=== PATIENT | female | born 1945 | race Caucasian/White ===

== ENCOUNTER → 2018-01-13 13:26 | Outpatient (CLI) | payer MEDICARE, OTHER, SELFPAY ==
--- NOTE | 2018-01-13 13:29 | RAD_ITS ---
STUDY: X-RAY - RIGHT KNEE REASON FOR EXAM: Pain. TECHNIQUE: 4 view(s) of the knee. COMPARISON: None. FINDINGS: Normal visualized distal femur. Normal visualized proximal tibia and fibula. Normal proximal tibiofibular articulation. There is mild joint space narrowing of the medial femorotibial compartment. Normal lateral femorotibial compartment. There are small marginal osteophytes and moderate to severe joint space narrowing of the medial aspect of the patellofemoral articulation. There is a small enthesophyte at the superior pole of the patella. 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 Electronically Signed: Bubba Younger MD at 11:55 EDT Tel , Service support ,
--- NOTE | 2018-01-13 13:29 | RAD_ITS ---
STUDY: X-RAY - LEFT KNEE REASON FOR EXAM: Pain. TECHNIQUE: 4 view(s) of the knee. COMPARISON: None. FINDINGS: Normal visualized distal femur. Normal visualized proximal tibia and fibula. Normal proximal tibiofibular articulation. There is a small marginal osteophyte of the medial femoral condyle and mild joint space narrowing of the medial femorotibial compartment. Normal lateral femorotibial compartment. There is moderately severe joint space narrowing of the medial aspect of the patellofemoral articulation. There is a small enthesophyte at the superior pole of the patella. 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 Electronically Signed: Bubba Younger MD at 11:54 EDT Tel , Service support ,
== END ==
PROVIDERS: Family Provider Internal Medicine; PCP Internal Medicine; Referring Provider Orthopaedic Surgery; Visit Provider Orthopaedic Surgery
DX: M25.561 Pain in right knee (principal); M25.562 Pain in left knee
CPT/HCPCS: 73564

== ENCOUNTER → 2019-04-07 09:14 | Outpatient (CLI) | payer MEDICARE, OTHER, SELFPAY ==
--- NOTE | 2019-04-07 09:19 | BI_ITS ---
MAMMOGRAPHY - BILATERAL SCREENING REASON FOR EXAM: Female, 73 years old. Routine annual screening examination. PERTINENT HISTORY: Grandmother with breast cancer. Aunt with Breast cancer. Prior stereotactic right breast biopsy. TECHNIQUE: Digital bilateral breast becca (3D mammographic acquisition) in the CC and MLO projections. 2-D mediolateral oblique (MLO) and craniocaudad (CC) views of both breasts were obtained. CAD: Full Field Digital Mammography with Computer Added Detection was performed. COMPARISON: Comparison is made with prior examination dated December 10, 2016 and October 31, 2015. FINDINGS: Breast Composition: The breasts are almost entirely fatty. There are no dominant masses or suspicious calcifications. Scattered microcalcifications are seen in the inferior medial aspect of the right breast. A stereotactic tissue clip marker is seen in the inferior medial aspect of the right breast. No other significant abnormalities are identified. There has been no significant change since the prior study. BI/SCREEN MAMM (CAD) W/BECCA BILAT IMPRESSION: Stable bilateral screening mammogram. Yearly follow-up mammogram recommended. (A) ASSESSMENT CATEGORY: BIRADS Category 2: Benign. A letter regarding these results will be sent to the patient by the facility within 30 days. Approximately 10% of breast cancers are not detected by mammography. A normal mammogram should not delay biopsy of a clinically suspicious abnormality. [id number] Electronically Signed: Jamir Luna, at 11:02 EST , Service support ,
--- NOTE | 2019-04-07 09:25 | BD_ITS ---
STUDY: DUAL ENERGY X-RAY ABSORPTIOMETRY / DXA REASON FOR EXAM: Female, 73 years old. 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 COMPARISON: Comparison is made with prior study dated October 17, 2015. FINDINGS: Lumbar Spine (L1-L4): g/cm2 (1.065) / T-score (-0.8) / Z-score (0.9) Findings are suggestive of normal bone density with a low fracture risk. Increased kyphosis. Left Femur Total: g/cm2 (1.085) / T-score (0.6) / Z-score (2.1) Left Femoral Neck: g/cm2 (0.968) / T-score (-0.5) / Z-score (1.2) Right Femur Total: g/cm2 (1.063) / T-score (0.4) / Z-score (2.0) Right Femoral Neck: g/cm2 (0.980) / T-score (-0.4) / Z-score (1.3) The T-Scores on the most recent prior examination were: Lumbar Spine (L1-L4): There has been worsening of bone density since the previous examination. Left Femur Total: which represents an improvement of 0.3%. Right Femur Total: which represents a worsening of 1.4%. BD/Dexa Bone Density Study IMPRESSION: The patient is considered normal as outlined below according to World Irvin Organization (WHO) criteria with a low fracture risk. There has been worsening of bone density since the previous examination. Reference Information: The T-score is the number of standard deviations above or below the standard which is normal for young adults at their peak bone mineral density. The World Health Organization (WHO) interprets the T-scores as follows: Above -1 Normal bone density Between -1 and -2.5 Osteopenia Equal to / or below -2.5 Osteoporosis As a practical clinical guideline, osteopenia may be graded as follows: Mild -1 through -1.5 Moderate -1.6 through -2.0 Severe -2.1 through -2.4 The Z-score is the number of standard deviations above or below age-matched controls. A Z-score of less than -1.5 would be considered abnormal. References: 1. NIH Osteoporosis and Related Bone Diseases http://www.osteo.org 2. International Society for Clinical Densitometry http://www.iscd.org 3. National Osteoporosis Foundation http://www.nof.org Electronically Signed: Jamir Luna, at 12:28 EST , Service support ,
== END ==
PROVIDERS: Family Provider Internal Medicine; PCP Internal Medicine; Referring Provider Internal Medicine; Visit Provider Internal Medicine
DX: Z12.31 Encounter for screening mammogram for malignant neoplasm of breast (principal); Z78.0 Asymptomatic menopausal state
CPT/HCPCS: 77063; 77067; 77080

== ENCOUNTER → 2020-05-04 10:07 | Outpatient (CLI) | payer MEDICARE, OTHER, SELFPAY ==
--- NOTE | 2020-05-04 10:11 | BI_ITS ---
MAMMOGRAPHY - BILATERAL SCREENING REASON FOR EXAM: Female, 74 years old. Routine annual screening examination. PERTINENT HISTORY: Grandmother with breast cancer. Aunt with breast cancer. TECHNIQUE: Digital bilateral breast becca (3D mammographic acquisition) in the CC and MLO projections. 2-D mediolateral oblique (MLO) and craniocaudad (CC) views of both breasts were obtained. CAD: Full Field Digital Mammography with Computer Added Detection was performed. COMPARISON: Comparison is made with prior study dated 04/07/2019 and 12/10/2016. FINDINGS: Breast Composition: The breasts are almost entirely fatty. There are no dominant masses or suspicious calcifications. Stable scattered microcalcifications are seen in the inferior medial aspect of the right breast. Once again, a stereotactic tissue clip marker is seen in the inferior medial aspect of the right breast. Stable small benign-appearing bilateral axillary lymph nodes. No other significant abnormalities are identified. There has been no significant change since the prior study. BI/SCRN MAMM (CAD)W/BECCA BILAT IMPRESSION: Stable bilateral screening mammogram. Yearly follow-up mammogram recommended. (A) ASSESSMENT CATEGORY: BIRADS Category 2: Benign. A letter regarding these results will be sent to the patient by the facility within 30 days. Approximately 10% of breast cancers are not detected by mammography. A normal mammogram should not delay biopsy of a clinically suspicious abnormality. [id number] Electronically Signed: Jamir Luna MD at 9:16 EST , Service support ,
== END ==
PROVIDERS: PCP Internal Medicine; Referring Provider Internal Medicine; Visit Provider Internal Medicine
DX: Z12.31 Encounter for screening mammogram for malignant neoplasm of breast (principal)
CPT/HCPCS: 77063; 77067

== ENCOUNTER 2021-05-08 09:11 | Outpatient (CLI) | payer MEDICARE, OTHER, SELFPAY ==
--- NOTE | 2021-05-08 09:18 | BD_ITS ---
STUDY: DUAL ENERGY X-RAY ABSORPTIOMETRY / DXA REASON FOR EXAM: Female, 75 years old. Z780 TECHNIQUE: Bone Mineral Density (BMD) measurements of lumbar spine and bilateral hips were obtained. COMPARISON: Comparison is made with prior study dated 04/07/2019. FINDINGS: Lumbar Spine (L1-L4): g/cm2 (0.922) / T-score (-1.2) / Z-score (1.2) Findings are suggestive of osteopenia with a low fracture risk. Left Femur Total: g/cm2 (0.907) / T-score (-0.3) / Z-score (1.4) Left Femoral Neck: g/cm2 (0.671) / T-score (-1.6) / Z-score (0.4) Right Femur Total: g/cm2 (0.959) / T-score (0.1) / Z-score (1.8) Right Femoral Neck: g/cm2 (0.672) / T-score (-1.6) / Z-score (0.4) The T-Scores on the most recent prior examination were: Lumbar Spine (L1-L4): There has been worsening of bone density since the previous examination. Left Femur Total: which represents a worsening of 10.8%. Right Femur Total: which represents a worsening of 3.6%. BD/Dexa Bone Density Study IMPRESSION: The patient is considered osteopenic as outlined below according to World Irvin Organization (WHO) criteria with a moderate fracture risk. There has been worsening of bone density since the previous examination. Reference Information: The T-score is the number of standard deviations above or below the standard which is normal for young adults at their peak bone mineral density. The World Health Organization (WHO) interprets the T-scores as follows: Above -1 Normal bone density Between -1 and -2.5 Osteopenia Equal to / or below -2.5 Osteoporosis As a practical clinical guideline, osteopenia may be graded as follows: Mild -1 through -1.5 Moderate -1.6 through -2.0 Severe -2.1 through -2.4 The Z-score is the number of standard deviations above or below age-matched controls. A Z-score of less than -1.5 would be considered abnormal. References: 1. NIH Osteoporosis and Related Bone Diseases www osteo.org 2. International Society for Clinical Densitometry www iscd.org 3. National Osteoporosis Foundation www nof.org Electronically Signed: Jamir Luna MD at 9:26 EST ,
== END 2021-05-08 23:59 | disposition home or self-care (01) ==
LOC: OPBD 09:11
PROVIDERS: PCP Internal Medicine; Referring Provider Internal Medicine; Visit Provider Internal Medicine
DX: Z78.0 Asymptomatic menopausal state (principal)
CPT/HCPCS: 77080

== ENCOUNTER 2021-06-01 08:55 | Outpatient (CLI) | payer MEDICARE, OTHER, SELFPAY ==
--- NOTE | 2021-06-01 09:03 | BI_ITS ---
MAMMOGRAPHY - BILATERAL SCREENING REASON FOR EXAM: Female, 75 years old. Routine annual screening examination. PERTINENT HISTORY: Grandmother with breast cancer. Aunt with breast cancer. TECHNIQUE: Digital bilateral breast becca (3D mammographic acquisition) in the CC and MLO projections. 2-D mediolateral oblique (MLO) and craniocaudad (CC) views of both breasts were obtained. CAD: Full Field Digital Mammography with Computer Added Detection was performed. COMPARISON: Comparison is made with prior study dated 05/04/2020 and 04/07/2019. FINDINGS: Breast Composition: The breasts are almost entirely fatty. There are no dominant masses or suspicious calcifications. Stable scattered microcalcifications in the inferior medial portion of the right breast. A stereotactic tissue clip marker is seen in the inferior anterior medial aspect of the right breast. Stable small benign appearing bilateral axillary nodes. No other significant abnormalities are identified. There has been no significant change since the prior study. BI/SCRN MAMM (CAD)W/BECCA BILAT IMPRESSION: Stable bilateral screening mammogram. Yearly follow-up mammogram recommended. (A) ASSESSMENT CATEGORY: BIRADS Category 2: Benign. A letter regarding these results will be sent to the patient by the facility within 30 days. Approximately 10% of breast cancers are not detected by mammography. A normal mammogram should not delay biopsy of a clinically suspicious abnormality. [id number] Electronically Signed: Jamir Luna MD at 10:18 EST ,
== END 2021-06-01 23:59 | disposition home or self-care (01) ==
LOC: OPBI 09:03
PROVIDERS: PCP Internal Medicine; Referring Provider Internal Medicine; Visit Provider Internal Medicine
DX: Z12.31 Encounter for screening mammogram for malignant neoplasm of breast (principal)
CPT/HCPCS: 77063; 77067

== ENCOUNTER → 2022-01-21 | Outpatient (CLI) | payer MEDICARE, OTHER, SELFPAY ==
--- NOTE | 2022-01-21 13:40 | CDU_ITS ---
Reason For Study: Preop Rt. Velocities/BP Lt. Velocities/BP Prox CCA 67/17 cm/sec. Prox CCA 95/25 cm/sec. Mid CCA 61/18 cm/sec. Mid CCA 71/19 cm/sec. Dist CCA 56/19 cm/sec. Dist CCA 70/23 cm/sec. Prox ICA 55/18 cm/sec. Prox ICA 74/22 cm/sec. Mid ICA 71/31 cm/sec. Mid ICA 95/28 cm/sec. Dist ICA 114/38 cm/sec. Dist ICA 56/20 cm/sec. Rt. ICA/CCA = 1.9. Lt. ICA/CCA = 1.3. Prox ECA 93/17 cm/sec. Prox ECA 78/16 cm/sec. Rt. Vert. 49/13 cm/sec. Lt. Vert. 47/15 cm/sec. Right Extracranial There is intimal thickening but no significant atherosclerotic plaque noted in the right common carotid artery. There is intimal thickening but no significant atherosclerotic plaque noted in the right internal carotid artery. The right internal carotid artery is very tortuous. There is intimal thickening but no significant atherosclerotic plaque noted in the right external carotid artery. Antegrade flow is noted in the right vertebral artery. Left Extracranial There is intimal thickening but no significant atherosclerotic plaque noted in the left common carotid artery. There is intimal thickening but no significant atherosclerotic plaque noted in the left internal carotid artery. The left internal carotid artery is very tortuous. There is no significant atherosclerotic plaque noted in the left external carotid artery. Antegrade flow is noted in the left vertebral artery. Procedure Carotid Duplex [id number]. This is a Carotid Duplex examination using B-mode, color flow and specral Doppler. Exam performed in department. VL/Carotid Duplex Ultrasound Interpretation Summary Intimal thickening bilateral proximal internal carotid arteries with less than 50% stenosis. Significant tortuosity of bilateral internal carotid arteries noted. Less than 50% stenosis bilateral external carotid arteries Patent and antegrade vertebral arteries bilaterally Ordering Physician: RONEL MORGAN Referring Physician: Marifer Ward Performed By: Arabella Meza, JOHN, RVT
== END | disposition home or self-care (01) ==
LOC: CVS 13:39
PROVIDERS: PCP Internal Medicine
DX: Z01.818 Encounter for other preprocedural examination (principal); R09.89 Other specified symptoms and signs involving the circulatory and respiratory systems
CPT/HCPCS: 93880

== ENCOUNTER → 2022-03-04 | Outpatient (CLI) | payer MEDICARE, OTHER, SELFPAY ==
--- NOTE | 2022-03-04 10:15 | US_ITS ---
EXAM: US PELVIS TRANSABDOMINAL AND TRANSVAGINAL, COMPLETE CLINICAL INDICATION: OVARY CYST TECHNIQUE: Transabdominal and transvaginal pelvic ultrasound was performed with grayscale and color Doppler imaging. Transvaginal imaging was used for better evaluation of the endometrium and adnexa. This report was created using [employer] report generation technology. COMPARISON: None. FINDINGS: UTERUS/CERVIX: Uterus is surgically absent. Anteverted. There is no uterine mass. Normal endometrial stripe thickness. RIGHT OVARY: Right ovary is not visualized potentially due to positional or overlying bowel gas. No adnexal masses. LEFT OVARY: Left ovary measures 1.2 x 0.6 x 0.7 cm and is unremarkable. No adnexal masses. FREE FLUID: No free fluid in the pelvic cul-de-sac. BLADDER: Urinary bladder has a volume of 146 mL without wall thickening or an intraluminal abnormalities. US/Pelvic (Non ) IMPRESSION: No left ovarian masses or any adnexal masses. Right ovary not well visualized. Electronically Signed: Rasta Reyes MD at 4:46 EST ,
== END | disposition home or self-care (01) ==
LOC: US 10:13
PROVIDERS: PCP Internal Medicine; Visit Provider Internal Medicine
DX: N83.209 Unspecified ovarian cyst, unspecified side (principal)
CPT/HCPCS: 76830; 76856

== ENCOUNTER → 2022-06-03 | Outpatient (CLI) | payer MEDICARE, OTHER, SELFPAY ==
--- NOTE | 2022-06-03 12:51 | BI_ITS ---
MAMMOGRAPHY - BILATERAL SCREENING 3-D TOMOSYNTHESIS REASON FOR EXAM: Female, 76 years old. Routine screening PERTINENT HISTORY: Grandmother and aunt with breast cancer.. TECHNIQUE: 2-D mammograms and 3-D Tomosynthesis of the breast (s) were performed. CAD was performed. COMPARISON: 06/01/2021 FINDINGS: The breast composition is almost entirely fat. Scattered benign calcifications are seen. No dense spiculated masses or suspicious microcalcifications are identified. No architectural distortion is identified. There is no skin thickening or retraction. There has been no significant change since the prior study. BI/SCRN MAMM (CAD)W/BECCA BILAT IMPRESSION: No mammographic signs of malignancy. Routine yearly mammograms recommended. ASSESSMENT CATEGORY: BIRADS Category 1: Negative. A letter regarding these results will be sent to the patient by the facility within 30 days. FOLLOW UP RECOMMENDATION: Yearly follow up mammogram recommended. (A) Approximately 10% of breast cancers are not detected by mammography. A normal mammogram should not delay biopsy of a clinically suspicious abnormality. Electronically Signed: Bhupendra Stephens MD at 13:45 EDT ,
== END | disposition home or self-care (01) ==
LOC: OPBD 12:48
PROVIDERS: PCP Internal Medicine; Visit Provider Internal Medicine
DX: Z12.31 Encounter for screening mammogram for malignant neoplasm of breast (principal)
CPT/HCPCS: 77063; 77067

== ENCOUNTER → 2023-06-17 | Outpatient (CLI) | payer MEDICARE, OTHER, SELFPAY ==
--- NOTE | 2023-06-17 09:17 | BD_ITS ---
STUDY: DUAL ENERGY X-RAY ABSORPTIOMETRY / DXA REASON FOR EXAM: Female, 77 years old. Z780 TECHNIQUE: Bone Mineral Density (BMD) measurements of lumbar spine and bilateral hips were obtained. COMPARISON: Comparison is made with prior study dated May 08, 2021. FINDINGS: Lumbar Spine (L1-L4): g/cm2 (0.860) / T-score (-2.2) / Z-score (0.4) Findings are suggestive of osteopenia with a high fracture risk. Left Femur Total: g/cm2 (0.865) / T-score (-0.6) / Z-score (1.2) Left Femoral Neck: g/cm2 (0.699) / T-score (-1.4) / Z-score (0.8) Right Femur Total: g/cm2 (0.907) / T-score (-0.3) / Z-score (1.5) Right Femoral Neck: g/cm2 (0.675) / T-score (-1.6) / Z-score (0.5) The T-Scores on the most recent prior examination were: Lumbar Spine (L1-L4): There has been worsening of bone density since the previous examination. Left Femur Total: which represents a worsening of 4.6%. Right Femur Total: which represents a worsening of 5.4%. BD/Dexa Bone Density Study IMPRESSION: The patient is considered osteopenic as outlined below according to World Irvin Organization (WHO) criteria with a high fracture risk. There has been worsening of bone density since the previous examination. Reference Information: The T-score is the number of standard deviations above or below the standard which is normal for young adults at their peak bone mineral density. The World Health Organization (WHO) interprets the T-scores as follows: Above -1 Normal bone density Between -1 and -2.5 Osteopenia Equal to / or below -2.5 Osteoporosis As a practical clinical guideline, osteopenia may be graded as follows: Mild -1 through -1.5 Moderate -1.6 through -2.0 Severe -2.1 through -2.4 The Z-score is the number of standard deviations above or below age-matched controls. A Z-score of less than -1.5 would be considered abnormal. References: 1. NIH Osteoporosis and Related Bone Diseases www osteo.org 2. International Society for Clinical Densitometry www iscd.org 3. National Osteoporosis Foundation www nof.org Electronically Signed: Jamir Luna MD at 9:46 EDT ,
--- NOTE | 2023-06-17 09:17 | BI_ITS ---
MAMMOGRAPHY - BILATERAL SCREENING REASON FOR EXAM: Female, 77 years old. Routine annual screening examination. PERTINENT HISTORY: Grandmother with breast cancer. Aunt with breast cancer. History of prior right stereotactic breast biopsy. TECHNIQUE: Digital bilateral breast becca (3D mammographic acquisition) in the CC and MLO projections. 2-D mediolateral oblique (MLO) and craniocaudad (CC) views of both breasts were obtained. CAD: Full Field Digital Mammography with Computer Added Detection was performed. COMPARISON: Comparison is made with prior study of June 03, 2022 and June 01, 2021. FINDINGS: Breast Composition: The breasts are almost entirely fatty. There are no dominant masses or suspicious calcifications. A tissue clip marker is seen in the inferior medial midportion of the right breast. Stable small benign appearing bilateral axillary lymph nodes. No other significant abnormalities are identified. There has been no significant change since the prior study. BI/SCRN MAMM (CAD)W/BECCA BILAT IMPRESSION: Stable bilateral screening mammogram. Yearly follow-up mammogram recommended. (A) ASSESSMENT CATEGORY: BIRADS Category 2: Benign. A letter regarding these results will be sent to the patient by the facility within 30 days. Approximately 10% of breast cancers are not detected by mammography. A normal mammogram should not delay biopsy of a clinically suspicious abnormality. [id number] Electronically Signed: Jamir Luna MD at 11:13 EDT ,
== END | disposition home or self-care (01) ==
LOC: OPBD 09:16
PROVIDERS: PCP Internal Medicine; Referring Provider Internal Medicine; Visit Provider Internal Medicine
DX: Z12.31 Encounter for screening mammogram for malignant neoplasm of breast (principal); Z78.0 Asymptomatic menopausal state
CPT/HCPCS: 77063; 77067; 77080

== ENCOUNTER → 2023-11-26 | Outpatient (CLI) | payer MEDICARE, OTHER, SELFPAY ==
--- NOTE | 2023-11-26 07:50 | RAD_ITS ---
STUDY: BARIUM ENEMA. REASON FOR EXAM: Female, 78 years old. Diverticulosis of colon -- Requires to further evaluate the left colon and a probable redund FLUOROSCOPY TIME (if supplied): ( 48 seconds ) minutes/seconds. 471.7 mGy. TECHNIQUE: A forging press setter up view was obtained. Following this, barium was introduced retrograde through the rectum. The entire colon was opacified. COMPARISON: None. FINDINGS: On the forging press setter up view, there is evidence of degenerative changes of the lumbar spine with a levoscoliosis. There is evidence of prior lower left anterior abdominal wall hernia repair. Degenerative changes of both hip joints as well as the symphysis pubis. Contrast was introduced retrograde through the colon. There is diffuse sigmoid diverticulosis without radiographic ends of diverticulitis. There is redundancy of the sigmoid colon. There is no evidence of obstruction to the antegrade or retrograde flow of contrast. No mass lesion is seen. RAD/Barium Enema No Air Cont IMPRESSION: Sigmoid diverticulosis without radiographic evidence of diverticulitis. Redundancy of the sigmoid colon. Electronically Signed: Jamir Luna MD at 8:50 EDT ,
== END | disposition home or self-care (01) ==
LOC: RAD 07:38
PROVIDERS: PCP Internal Medicine; Visit Provider Internal Medicine
DX: K57.30 Diverticulosis of large intestine without perforation or abscess without bleeding (principal)
CPT/HCPCS: 74270

== ENCOUNTER 2023-11-30 15:18 | Emergency (ER) | payer MEDICARE, OTHER, SELFPAY ==
[2023-11-30 15:19] VITALS: BP 173/76; PULSE 69; RESP 18; TEMP 36.4; O2SAT 96
--- NOTE | 2023-11-30 16:06 | ED.VIS.LOWEX ---
HPI History of Present Illness HPI Narrative: 78-year-old female complaining of several day history of leg pain. Started in her left calf. Then it kind of moved up to her hamstring and now it is in her left buttock. Her left calf and hamstring are not painful now. They are not swollen. She has never had a DVT or PE. She denies any recent fall or injury. She had a recent barium enema in the next days when she started having pain. She was seen in urgent care who thought it might be from dehydration but says she has been taking in p.o. fluids well without any relief. Hurts more to walk on. No fever. No redness or discoloration. No prior history. Chief Complaint: Lower Extremity Injury Informant: patient Occured/Mechanism Mechanism/Context: No injury and No blunt trauma Onset/Context/Timing Onset: Days Context: Gradual Onset Timing: Continuous Quality of Pain: Dull and Aching Current Severity: Mild Maximum Severity: Mild Associated Symptoms Associated Symptoms: Negative for Parasthesia, Weakness or Loss of Funtion Narrative Narrative: 78-year-old female with atraumatic left now buttock pain. Started a left calf then moved to the left hamstring and outs in the left buttock. The calf and hamstring are longer tender. It is worse to walk on. No prior history. Prior similar symptoms: No Recent Illness/Hospitalization: No [facility] Medical History RBBB (right bundle branch block) Essential hypertension Left atrial enlargement Sinus bradycardia Home Medications ?Medication ?Instructions ?Recorded ?Last Taken ?Type alendronate 70 mg tablet 70 mg PO Q7D@0709/06/13 Unknown History aspirin 81 mg tablet,delayed 81 mg PO DAILY@0809/06/13 Unknown History release atorvastatin 20 mg tablet 20 mg PO QHS 09/06/13 Unknown History calcium carbonate 600 mg-vitamin 2 ea PO DAILY 09/06/13 Unknown History D3 10 mcg (400 unit) tablet (Calcium 600 + D(3)) ergocalciferol (vitamin D2) 1,250 1,000 unit PO Q7D 09/06/13 Unknown History mcg (50,000 unit) capsule (Vitamin D2) multivitamin with iron 1 ea PO DAILY 09/06/13 Unknown History omega-3s 360 ow-zuv-ofr-fish oil 1 ea PO DAILY 09/06/13 Unknown History 1,200 mg-D3 1,000 unit capsule (Fish Oil-Vit D3) oxycodone-acetaminophen 5 mg-325 1 tab PO Q4H PRN PRN Pain #90 09/06/13 Unknown Rx mg tablet TABLETS Allergy/AdvReac Type Severity Reaction Status Date / Time No Known Allergies Allergy Verified 11/30/23 15:22 Family History Mother Angina pectoris Surgical History History of hysterectomy History of hernia repair History of bunionectomy Social History Smoking Status: Never smoker alcohol intake: never substance use type: does not use ROS ROS ED ROS Narrative Denies recent illness. Constitutional Constitutional ED: Denies fever(s) Eyes Eyes: Denies blurry vision ENT ENT ED: Denies ear pain Cardiovascular Cardiovascular: Denies chest pain Respiratory/Chest Respiratory/Chest: Denies cough, dyspnea or dyspnea on exertion Gastrointestinal Gastrointestinal: Denies abdominal pain Genitourinary Genitourinary ED: Denies dysuria or hematuria Musculoskeletal Musculoskeletal: Denies arthralgias or back pain Integumentary Denies abscess or Abrasions Neurologic Neurologic: Denies headache(s) Psychiatric Psychiatric: Denies anxiety Endocrine Endocrinology: Denies polydipsia Hematologic/Lymphatic Hematologic/Lymphatic: Denies easy bleeding Allergic/Immunologic Allergic/Immunologic ED: Denies mouth swelling, tongue swelling or urticaria EXAM Physical Exam Narrative Exam Narrative: 78-year-old female sitting upright in bed. No distress. Vital signs stable afebrile. Friend at bedside. H EENT exam unremarkable. Neck nontender. Lungs clear. Heart regular rhythm no murmur rate about 70. Abdomen soft nontender. Back and spine nontender. Where she is complaining of discomfort is her left buttock. Mildly tender. No swelling. No abscess. No redness. No warmth. No bruising. No signs of trauma. She has full flexion extension of both hips and knees and ankles. Normal dorsi plantarflexion. She has no reproducible calf or hamstring pain there is no swelling or edema. Neurologically she is awake and alert. She has normal range of motion and motor strength. She got up out of bed and stood up easily just causes more pain in her left buttock. Const Vital Signs: 11/30/23 15:19 Temperature 97.5 F L Temperature Source Temporal Pulse Rate 69 Respiratory Rate 18 Blood Pressure 173/76 H Blood Pressure Mean 108 Pulse Ox 96 Oxygen Delivery Method Room Air Positive well nourished and well developed; Negative for cachectic, contractures or unkempt General Appearance ED: well developed; Negative for unkempt, cachectic or contractures Nutritional Appearance: Negative for cachectic HEENT Reports moist mucous membranes normocephalic and atraumatic; Negative for trauma or tenderness Eyes PERRL General Eye ED: Negative for other Neck full ROM and supple Thyroid: Negative for tender or other Lymph Lymphatic: Negative for other Chest Wall inspection of chest normal and palpation of chest normal Chest: Negative for other Resp normal respiratory effort, no retractions and clear to auscultation bilaterally Auscultation: Negative for rales, rhonchi, wheezes or diminished lung sounds Cardio regular rate, regular rhythm, S1 normal heart sound, S2 normal heart sound and no murmurs Rate: Negative for bradycardia or tachycardic Rhythm: Negative for abnormal rhythm Bruits: Negative for other GI non-tender, non-distended and no masses Inspection: Negative for abdominal distention Palpation: soft; Negative for tender, guarding or rebound tenderness present Back/Spine no CVA tenderness Back/Spine Narrative: No reproducible back pain. General Back: Negative for CVA tenderness or swelling Cervical Spine: Negative for cervical spine tenderness Thoracic Spine / Upper Back: Negative for thoracic spinal tenderness Lumbar Spine / Lower Back: Negative for lumbar spinal tenderness Extremity normal to inspection and full ROM Extremity Narrative: Left buttock mild tenderness. No bruising or redness. No mass or abscess. Full range of motion to her hip. Normal flexion extension of her knee and ankle. Normal strength. Increased discomfort with standing. General Extremety ED: Negative for cyanosis or edema General Extremity: Negative for cyanosis or edema Neuro oriented x3, CN's II-XII intact bilaterally, moves all extremities and no sensory deficits noted Sensorium / Orientation: alert, oriented to person, oriented to place and oriented to time; Negative for orientation impaired or confused Motor Exam: strength 5/5 throughout; Negative for general weakness or strength abnormal Psych mental status grossly normal Appearance: Negative for unkempt Speech: No other Mood & Affect: Negative for anxious Skin no wounds Lesions: no lesions Rashes: no rashes Trauma: Negative for abrasion, laceration or puncture MDM MDM MDM Narrative Medical decision making narrative: 78-year-old female with pain in the left buttock. Reproducible. Normal exam otherwise. X-ray being obtained of the left hip and pelvis. Repeat exam patient doing well at 5:45 PM. No change. Resting comfortably. We went over x-ray results which showed arthritis but no acute process. She is comfortable being discharged home. Motrin Tylenol for pain. Follow-up if not improving. Return if symptoms change. History & Record Review Discussion w/independent historian: Patient Additional record(s) reviewed:: Prior inpatient record Radiography Diagnostic Testing: Clinical Impression(s) from Imaging Studies Hip/Pelvis X-Ray 11/30/23 16:18 IMPRESSION: Degenerative changes of the left hip. No acute bony abnormality. Electronically Signed: Clifton Shrestha MD at 17:25 EDT Reading Location ID and State: [facility] / [place] Tel , Service support , Left hip with pelvis x-ray shows barium from her prior study in the colon and rectum. Arthritic changes of both hips but no acute process. Interpreted both by myself and the radiologist. Discharge Plan Triage Chief Complaint: Lower Extremity Injury ED Provider: Efrain Roberts Dx/Rx/DC Orders Clinical Impression: Left buttock pain Prescriptions: No Action atorvastatin 20 MG tablet 20 mg PO QHS alendronate 70 MG tablet 70 mg PO Q7D@0700 aspirin 81 MG tablet 81 mg PO DAILY@0800 ergocalciferol (vitamin D2) [Vitamin D2] 50,000 UNIT capsule 1,000 unit PO Q7D multivitamin with iron 1 EACH tablet 1 ea PO DAILY calcium carbonate-vitamin D3 [Calcium 600 + D(3)] 1 EACH tablet 2 ea PO DAILY [id number]-epa-fish oil-D3 [Fish Oil-Vit D3] 1 EACH capsule 1 ea PO DAILY oxycodone-acetaminophen 1 TABLET tablet 1 tab PO Q4H PRN PRN (Reason: Pain) Qty: 90 0RF Primary Care Provider: Marifer Ward Referrals: Marifer Ward, DO [Primary Care Provider] - 1 Week if not improving Activity Restrictions/Additional Instructions: No specific cause for your pain. Possibly from arthritis in your left hip. There is no signs of an abscess or trauma. Ice to the area. Motrin and Tylenol for pain. Follow-up with your doctor if not improving. Return if feeling a lot worse or develop a fever or swelling in your leg. Print Language: New Zealander Disposition Disposition: Home, Self Care
--- NOTE | 2023-11-30 16:18 | RAD_ITS ---
INDICATION: left buttock pain EXAMINATION/TECHNIQUE: X-RAY - XR Hip Unilateral with Pelvis when performed; 2-3 Views COMPARISON: No relevant prior comparison study available FINDINGS: PELVIC BONES: No displaced fracture, destructive or sclerotic lesions. Extensive retained GI contrast in the colon and in multiple diverticula. Sacroiliac joints are unremarkable. No widening of the pubic symphysis. HIPS: Degenerative changes of the hip joints, left more severe than right. No acute fracture. SOFT TISSUES: Surgical clips in the pelvis. RAD/HIP, UNI W/ Pelvis 2-3 Views IMPRESSION: Degenerative changes of the left hip. No acute bony abnormality. Electronically Signed: Clifton Shrestha MD at 17:25 EDT ,
[2023-11-30 17:55] VITALS: BP 160/84; PULSE 98; RESP 16; TEMP 36.2; O2SAT 100
== END 2023-11-30 17:56 | disposition home or self-care (01) ==
PROVIDERS: Emergency Provider Emergency Medicine; PCP Internal Medicine; Visit Provider Emergency Medicine
DX: M54.50 Low back pain, unspecified (principal); M16.0 Bilateral primary osteoarthritis of hip; I10 Essential (primary) hypertension
CPT/HCPCS: 73502; 99282

== ENCOUNTER 2024-05-27 10:14 | Day surgery (SDC) | payer MEDICARE, OTHER, SELFPAY ==
[2024-05-27] VITALS (7 sets, daily range): BP systolic 153–166; BP diastolic 64–84; PULSE 63–68; RESP 16–18; TEMP 36.3–36.4; O2SAT 95–99; BMI 31.8
--- NOTE | 2024-05-27 09:02 | PCM.HP.STD ---
HPI - General HPI Narrative Galilea Ledesma is a delightful 78-year-old female referred to the office by Dr. Bill Lin. She present in the office with a biopsy-proven melanoma in situ, lentigo type, diagnosed with a shave biopsy on 13 April 2024. No headaches. No new lumps/bumps in axilla or groin. Pt denies smoking, vaping and any family or personal history of blood clots or problems with anesthesia Caprini score is 6 given age and this malignancy. Discussed sunscreen. Current Encounter (DATE OF SURGERY H&P UPDATE): I saw and examined the patient this morning in pre-operative holding. We discussed risks and benefits of today's surgery and they would like to proceed. NO CHANGE in health history since last seen and evaluated. Ready to proceed with surgery. [facility] Medical History Wears glasses Leg cramps Cardiology follow-up encounter History of Holter monitoring History of echocardiogram Skin cancer Osteopenia High cholesterol Hypertension Cataracts, bilateral RBBB (right bundle branch block) Essential hypertension Left atrial enlargement Sinus bradycardia Home Medications ?Medication ?Instructions ?Recorded ?Last Taken ?Type alendronate 70 mg tablet 70 mg PO HIDALGO 09/06/13 Unknown History aspirin 81 mg tablet,delayed 81 mg PO DAILY@0800 09/06/13 05/26/24 History release atorvastatin 20 mg tablet 20 mg PO QHS 09/06/13 Unknown History calcium 600 mg (as 2 ea PO DAILY 09/06/13 Unknown History carbonate)-vitamin D3 10 mcg (400 unit) tablet (Calcium 600 + D(3)) ergocalciferol (vitamin D2) 1,250 1,000 unit PO DAILY 09/06/13 Unknown History mcg (50,000 unit) capsule (Vitamin D2) multivitamin with iron 1 ea PO DAILY 09/06/13 Unknown History omega-3s 360 ie-qje-llj-fish oil 1 ea PO DAILY 09/06/13 Unknown History 1,200 mg-D3 1,000 unit capsule (Fish Oil-Vit D3) oxycodone 5 mg tablet 5 mg PO BID PRN pain 5 days #10 05/27/24 Unknown Rx tabs Allergy/AdvReac Type Severity Reaction Status Date / Time No Known Allergies Allergy Verified 05/27/24 10:32 Family History Mother Angina pectoris Anxiety Cancer lung cancer Thyroid disorder Father Hypertension Grandmother Diabetes Heart disease Grandfather Diabetes Heart disease Surgical History History of hysterectomy History of hernia repair History of bunionectomy Social History Smoking Status: Never smoker alcohol intake: never substance use type: does not use additional social history: pt denies vaping, denies edibles, denies marijuana denies family history of blood clots uses aspirin daily, uses ibuprofen as needed Physical Exam Narrative No lymphadenopathy in the axilla bilaterally. Previous biopsy spot, approximately 1 x 1 cm, with some reactive surrounding erythema but no induration. The spot is located in the central back over the spine in the thoracic region as noted above in the photo. I marked the location of the melanoma in situ biopsy in preop and the patient was in agreement with the site marking (inferior thoracic spine, consistent with the dermatology notes and scab from the biopsy). Photo from clinic Assessment & Plan Assessment/Plan (1) Melanoma in situ of back: PLAN: I discussed with the patient extensively about melanomas. I talked the patient extensively about the risks of surgery, including bleeding, infection, damage to surrounding structures, surgical site dehiscence and wound formation, need for wound care, need for repeat operations, poor scaring, failure to obtain the desired result, DVT/PE, and the risks of anesthesia including , including stroke (from low blood pressure/ischemia or clot); however, plan will be for sedation and local to mitigate the risk of anesthesia and blood clots. The benefits and alternatives of this surgery were also discussed. All of their questions were answered, and they agreed to proceed with surgery. I talked the patient about surgical margins. Dr. Lin recommending 9 mm surgical margins. Biopsy done with shave and there may be areas of invasive, so I will take 10 mm margins circumferentially (discussed with the patient these margins and she's in agreement with the plan). We talked about indications for sentinel node (deferring SNB). We talked about plan for excision and primary closure, and if we are unable to close without significant tension, we will delay closure/reconstruction with dermal substitute placement until we have permanent margins. Patient happy with this plan. INTERVAL H&P PLAN, DATE OF SURGERY: We will proceed with surgery today. Plan for excision of the melanoma in situ with 1 cm margins circumferentially under local and sedation in prone position.
--- NOTE | 2024-05-27 11:33 | PRE.ANES_ITS ---
ASA Classification* ASA Classification ASA Classification: 2 Assessment & Plan Anesthesia* Anesthesia Assessment Anesthesia Assessment: Discussed sedation and/or anesthesia options, risks, benefits, and alternatives with patient/parents/legal guardian/POA. Questions invited. The patient/parents/legal guardian/POA seems to understand and agrees to proceed with anesthesia plan. Reviewed the physical assessment, medical history, allergy history and patient home medications list prior to surgery/procedure/anesthetic and documented any changes. Performed airway and anesthesia risk assessments. Anesthesia Type Anesthesia Type: MAC History Source History Obtained from:: Patient and Chart Anesthesia Focused Assessment* Temperature: 97.3 F Pulse Rate: 63 Blood Pressure: 153/84 Respiratory Rate: 18 Pulse Ox: 99 Oxygen Delivery Method: Room Air Airway Assessment Mouth opens: >3 cm Mallampati Score: IV Teeth Condition: Intact Neck Range of motion (ROM): Full ROM Focused Labs Anesthesia Preop lab: CBC WBC 5.4 k/mm3 (4.4-11.0) 05/25/12 07:40 05/25/12 RBC 4.28 M/mm3 (4.2-5.4) 05/25/12 07:40 05/25/12 Hgb 12.4 g/dl (12.0-15.0) 05/25/12 07:40 05/25/12 Hct 38.8 % (37-47) 05/25/12 07:40 05/25/12 Plt Count 268 K/mm3 (150-450) 05/25/12 07:40 05/25/12 CHEMISTRY Potassium 3.7 mmol/L (3.5-5.1) 05/25/12 07:40 05/25/12 Sodium 141 mmol/L (136-145) 05/25/12 07:40 05/25/12 BUN 20 mg/dL (7-18) H 05/25/12 07:40 05/25/12 Creatinine 1.0 mg/dL (0.6-1.0) 05/25/12 07:40 05/25/12 Glucose 101 mg/dL (70-110) 05/25/12 07:40 05/25/12 COAG Pre-Assessment Diagnosis/Proposed Procedure Planned Operative Procedure(s): EXCISION OF MELANOMA IN SITU, BACK WITH DERMAL SUBSTITUTE REPLACEMENT OR PRIMARY CLOSURE Anesthesia History 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 When Was Last Pacemaker Check QUESTION #4 FULL TEXT: You/Your Family Experience fever (hyperthermia) with Anesthesia Last Oral Intake Last Oral intake: Last Oral Intake NPO since 00:00 05/27/24 10:32 Meds taken in AM with sips of No 05/27/24 10:32 water? Meds patient instructed to take am of surgery PONV PONV - compliance representative dealer: PONV - compliance representative dealer Female Yes 05/25/24 09:39 HX of Motion Sickness No 05/25/24 09:39 HX of N/V After Surgery Yes 05/25/24 09:39 Non-Smoker Yes 05/25/24 09:39 Duration of Surgery greater No 05/25/24 09:39 than 60 minutes Number of Risk Factors 3 05/25/24 09:39 PONV Score Moderate Risk 05/25/24 09:39 Height & Weight Height & Weight: Anesthesia: Height & Weight Height 5 ft 05/27/24 10:32 Weight: 74 kg 05/27/24 10:32 Body Mass Index (BMI) 31.8 05/27/24 10:32 Respiratory Assessment Respiratory Assessment - compliance representative dealer: Respiratory Tract Infection Hx - compliance representative dealer Hx Respiratory Tract Infection No 05/25/24 09:39 STOP Sleep Apnea STOP Sleep Apnea - compliance representative dealer: STOP Sleep Apnea - compliance representative dealer Hx Hypertension No 05/25/24 09:39 Hx Sleep Apnea No 05/25/24 09:39 CPAP BIPAP Do you snore loudly (louder No 05/25/24 09:39 than talking or can be heard Do you often feel tired/ No 05/25/24 09:39 fatigued/ sleepy during daytime? Has anyone observed you stop No 05/25/24 09:39 breathing during sleep? STOP Results Negative 05/25/24 09:39 QUESTION #5 FULL TEXT : Do you snore loudly (louder than talking or can be heard through closed doors)? 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 Specify any problems Hx of Preganancy in last 3 No 05/25/24 09:39 Months Nurse Filling Out Transfusion [id number] 05/25/24 09:39 & Questions: Date: 05/25/24 05/25/24 09:39 Time: 09:41 05/25/24 09:39 Patient unable to answer at this time (ie. confused, unrespo /Reproduction History /Reproductive History - compliance representative dealer: /Reproductive Hx- compliance representative dealer Hx Now Gestational Age (in weeks): EDC: Hx Hx Para Hx Section SAB Active Medications Active Medications: Current Medications Generic Name Dose Route Start Last Admin Trade Name Freq PRN Reason Stop Dose Admin Cefazolin Sodium 2 gm/ N/A 20 mls @ 400 mls/hr 05/27/24 12:00 IV 05/27/24 12:02 PREOP [facility] Medical History Wears glasses Leg cramps Cardiology follow-up encounter History of Holter monitoring History of echocardiogram Skin cancer Osteopenia High cholesterol Hypertension Cataracts, bilateral RBBB (right bundle branch block) Essential hypertension Left atrial enlargement Sinus bradycardia Home Medications ?Medication ?Instructions ?Recorded ?Last Taken ?Type alendronate 70 mg tablet 70 mg PO HIDALGO 09/06/13 Unknown History aspirin 81 mg tablet,delayed 81 mg PO DAILY@0800 09/0605/26/24 History release atorvastatin 20 mg tablet 20 mg PO QHS 09/06/13 Unknow n History calcium 600 mg (as 2 ea PO DAILY 09/06/13 Unkno wn History carbonate)-vitamin D3 10 mcg (400 unit) tablet (Calcium 600 + D(3)) ergocalciferol (vitamin D2) 1,250 1,000 unit PO DAILY 09/06/13 Unknown History mcg (50,000 unit) capsule (Vitamin D2) multivitamin with iron 1 ea PO DAILY 09/06/13 Unkno wn History omega-3s 360 ty-pmo-puu-fish oil 1 ea PO DAILY 4 Unknown History 1,200 mg-D3 1,000 unit capsule (Fish Oil-Vit D3) oxycodone 5 mg tablet 5 mg PO BID PRN pain 5 days #10 05/27/24 Unknown Rx tabs Allergy/AdvReac Type Severity Reaction Status Date / Time No Known Allergies Allergy Verified 05/27/24 10:32 Family History Mother Angina pectoris Anxiety Cancer lung cancer Thyroid disorder Father Hypertension Grandmother Diabetes Heart disease Grandfather Diabetes Heart disease Surgical History History of hysterectomy History of hernia repair History of bunionectomy Social History Smoking Status: Never smoker alcohol intake: never substance use type: does not use additional social history: pt denies vaping, denies edibles, denies marijuana denies family history of blood clots uses aspirin daily, uses ibuprofen as needed Review of Systems (Anesthesia) ROS Narrative System reviewed and no additional complaints, except as documented.
--- NOTE | 2024-05-27 12:00 | LES_PTH ---
PATIENT: GALILEA ASHLEY LOC: [facility] [place] U#:[id number] AGE/SX: 78/F ROOM: RE05/27/[address]: Dr. Ranjeet Conteh MD : 1945 BED: DIS: 05/27/2024 SPEC #: [id number] RECD: 05/28/24 09:07 STATUS: PARMINDER DIAL #: [id number] GREGORY: 05/27/24 12:[address]: Ranjeet Conteh DEPT: SURGICAL PATHOLOGY RECD BY: Efraín Bedoya ENTERED: 05/28/24 09:08 SP TYPE: Lesion OTHR DR: Dr. Marifer Ward DO Tissues: Skin of back, NOS Procedures: Surgery Specimen Level IV HEADER OPERATION: Excision melanoma in situ back, primary closure PRE-OP DIAGNOSIS: Melanoma in situ of back TISSUE SUBMITTED: Melanoma *short -superior, long- right side* MICROSCOPIC DIAGNOSIS Skin, back, wide excision: * Residual atypical melanocytes, surgical margins free. * Scar and associated reactive changes consistent with a previous surgical procedure. MICROSCOPIC DESCRIPTION Slides are reviewed. GROSS DESCRIPTION Received in formalin labeled, Galilea Ashley, and designated melanoma short-superior, long-right side, is an oriented elliptical excision of skin that measures 4.1 cm from right to left tips, 2.9 cm from superior to inferior edges and is excised to a depth measuring up to 1.1 cm. Two sutures orient the specimen as one short suture on the superior edge of the specimen and one long suture on the right side tip. Central on the skin surface is a 0.6 cm diameter area of scarring/apparent previous biopsy site. The edge of this focus is 1.0 cm from the closest superior radial skin margin. Also seen on the skin surface along the left aspect of the specimen is a 0.5 x 0.4 cm granular slightly raised focus. Remaining skin is gaona and unremarkable. The margin is inked as follows: The right tip is orange, the remaining superior half is inked black, and the remaining inferior half is inked blue. Sectioning is otherwise unremarkable. Ell Teacher sections are submitted as follows:Cassette Summary:1-opposing right and left tips shaved2-sales representative meats central section between right tip and central [id number] sections including entire scar submitted from right to [id number] central sections including granular raised focus and skin between left tip and central scarJK. 05/28/2024 CPT:75162
--- NOTE | 2024-05-27 12:16 | PCM.OPRPT ---
Operative Report (Standard) Operative Information Date of Procedure: 05/26/24 Pre-Operative Diagnosis: Melanoma in situ, back Post-Operative Diagnosis: Same Surgery/Procedure Performed: 1) Excision of melanoma in situ, back (over thoracic spine, lower), 4.3 x 3 cm (CPT: 43194) 2) Intermediate primary closure of back melanoma in situ wound, 6 cm (CPT: 19819) facilities maintenance manager: No Type of Anesthesia: MAC/Supplemental (12 cc of 50/50 mixture of 1% lidocaine with 1:200,000 epinephrine and 0.25% Marcaine with 1:200,000 epinephrine ) RN Documented Start/Stop Times: Operation Date: 05/27/24 12:00 Case Time Into Pre-Op 05/27/24 10:22 Anesthesia Start 05/27/24 12:47 Into Room 05/27/24 12:47 Out of Pre-Op 05/27/24 12:47 Procedure Start 05/27/24 13:05 Procedure End 05/27/24 13:27 Anesthesia End 05/27/24 13:33 Out of Room 05/27/24 13:33 Into Recovery 05/27/24 13:36 Into Phase II Recovery 05/27/24 13:48 Out of Phase II 05/27/24 14:05 Procedure Start Time: 13:05 Procedure Stop Time: 13:27 Select all DRAINS/GRAFTS/IMPLANTS that apply: None Estimated Blood Loss: Minimal Specimen collected: Yes Description of specimen(s) removed: Melanoma in situ excision with 1 cm margins, marked short superior, long right side with silk stitch Description of surgery: Indications: Galilea Ledesma is a delightful 78-year-old female who was diagnosed with a melanoma in situ with a shave biopsy from her posterior lower thoracic trunk (middle of her back) by a local archaeologist. He referred her to me for excision. I talked her extensively about melanoma in situ and the plan for 1 cm margins (lentigo maligna subtype). She was in agreement with the plan. I talked her about the risks, benefits, and alternatives to excision. Procedure details: Patient was correctly identified in preoperative holding and marked a biopsy site of the melanoma in situ with the patient and she was in agreement. She is taken back to the operating room and administered sedation and a local block as noted above. She was prepped and draped in sterile fashion and all proper timeouts were performed. Circumferentially the melanoma in situ was excised with 1 cm margins around the periphery of the lesion. A silk stitch was used to ck short superior and long right side. The melanoma in situ was excised full-thickness down to the fascia and sent to pathology. Hemostasis was obtained with Bovie electrocautery. Small wedges were excised from the lateral margins of the wound so would close in a straight horizontal line. The entire excision was 4.3 by 3 cm for the melanoma in situ with margins. Attention was then turned to the closure. This was performed with 2-0 PDS deep fascial sutures followed by 3-0 Monocryl deep dermal and 3-0 Monocryl running subcuticular sutures for a total intermediate closure of 6 cm on the posterior trunk. Prineo tape was applied. Patient tolerated the procedure well. She was awakened and taken the PACU in stable condition. Surgical Findings: No signs of spread into the subcutaneous tissue Complications Complications: No Admit VTE Documentation VTE Mechan Device Prophylaxis: SCD's
[2024-05-27] MEDS: Cefazolin 2 GM in Syringe IV (12:49)
[2024-05-27] MEDS: Lidocaine 1% /Epi 1:100 (20ml) 20 ML Vial (13:03)
[2024-05-27] MEDS: Bupiv/Epi 0.25% 30 ML Vial (13:03)
--- NOTE | 2024-05-27 13:36 | PCM.POST.ANE ---
Anesthesia: Postop Eval I Current Vital Signs Temperature: 97.4 F Pulse Rate: 66 Blood Pressure: 159/64 Respiratory Rate: 16 Pulse Ox: 99 Oxygen Delivery Method: Room Air Assessment Airway patent: Yes Spontaneous unlabored respirations: Yes Mental status: Awake and Calm nausea: No Vomiting: No Anesthesia Complication: No Fluid Hydration Crystalloid volume administer (ml): 5 Total IV fluid infused: 5 Progress Note Anesthesia document: Postop Eval 1 completed: Yes
--- NOTE | 2024-05-27 18:29 | PCM.POSTANE2 ---
Anesthesia Postop Eval I Sum Anesthesia Postop Eval I Summary Anesthesia Postop Eval I Summary: Anesthesia Postop Eval I: Assessment Summary Airway patent Spontaneous unlabored respirations Mental status nausea Vomiting Anesthesia Postop Eval I: Fluid Summary Crystalloid volume administer (ml) Colloids volume administered ( ml) Blood Product volume administered (ml) Total IV fluid infused Anesthesia Postop Eval I: Summary Notes Anesthesia Complication Anesthesia Complication Comment: Post-operative progress note Anesthesia: Postop Eval II Evaluation Mental status: Awake and Calm Pain Level: 1 nausea: No Vomiting: No Complications Anesthesia Complication: No
== END 2024-05-27 14:05 | disposition home or self-care (01) ==
LOC: SDC 10:19 → AC 10:21
PROVIDERS: PCP Internal Medicine; Referring Provider Surgery Plastic and Reconstructive Surgery; Visit Provider Surgery Plastic and Reconstructive Surgery
PROC: (CPT 21931; principal; 2024-05-27 11:50)
DX: L90.5 Scar conditions and fibrosis of skin (principal); I10 Essential (primary) hypertension; E78.00 Pure hypercholesterolemia, unspecified; Z79.82 Long term (current) use of aspirin; Z86.006 Personal history of melanoma in-situ; Z85.828 Personal history of other malignant neoplasm of skin
CPT/HCPCS: 21931; 00300; 88305; A4216; J2405

== ENCOUNTER → 2024-07-01 | Outpatient (CLI) | payer MEDICARE, OTHER, SELFPAY ==
--- NOTE | 2024-07-01 10:26 | BI_ITS ---
EXAM: SCRN MAMM (CAD)W/BECCA BILAT 07/01/2024 CLINICAL HISTORY: F, Age 78 y/o , SCRN MAMM (CAD)W/BECCA BILAT TECHNIQUE: Bilateral screening digital breast tomosynthesis with 2D and 3D images. Computer aided detection. COMPARISON: Prior exam(s) dated 06/17/2023, 06/03/2022. FINDINGS: TISSUE DENSITY: The breast tissue is almost entirely fatty. Bilateral Breast Mammographic Findings: No significant masses, calcifications or other abnormalities are identified. BI/SCRN MAMM (CAD)W/BECCA BILAT IMPRESSION: Right Breast: BIRADS 1 NEGATIVE. Left Breast: BIRADS 1 NEGATIVE. OVERALL FINAL ASSESSMENT: BIRADS 1 NEGATIVE. RECOMMENDATION: Routine annual follow-up in 1 Year A letter with findings and recommendations will be mailed to the patient. Reading Location: [id number]
== END | disposition home or self-care (01) ==
LOC: OPBI 10:25
PROVIDERS: PCP Internal Medicine; Referring Provider Internal Medicine; Visit Provider Internal Medicine
DX: Z12.31 Encounter for screening mammogram for malignant neoplasm of breast (principal)
CPT/HCPCS: 77063; 77067

== ENCOUNTER 2024-12-20 18:27 | Observation (INO) | payer MEDICARE, OTHER, SELFPAY ==
--- NOTE | 2024-12-20 14:38 | ECHOD_ITS ---
Reason For Study Reason For Study: ABNORMAL EKG Procedure This was a 2D Doppler, Color Flow transthoracic echocardiogram. Exam performed in department. Left Ventricle Normal LV size. The left ventricular ejection fraction is 65 %. No regional wall motion abnormalities noted. Right Ventricle Normal RV size. Normal systolic function. Atria Normal left atrium. Normal right atrium. Mitral Valve Normal mitral valve. Mild (1+) eccentric mitral valve insufficiency. Tricuspid Valve Normal tricuspid valve. Mild (1+) tricuspid valve insufficiency. Pulmonary artery systolic pressure is 30 mmHg. Aortic Valve Normal aortic valve. Trisinus/trileaflet aortic valve. Pulmonic Valve Normal pulmonic valve. Great Vessels Normal aortic root. The pulmonary artery is normal size. Inferior vena cava collapse with respiration. Pericardium/Pleural No pericardial effusion. MMode/2D Measurements & Calculations LVIDd: 3.9 cm IVSd: 0.99 cm LVOT diam: 2.0 cm RVDd: 3.2 cm LVPWd: 1.0 cm LVOT area: 3.0 cm2 asc Aorta Diam: 3.4 cm LAV(MOD-bp): 48.3 ml LVAd ap4: 19.4 cm2 LAV(MOD-bp) Indexed: 28.6 ml/m2 LVLd ap4: 6.8 cm LAV(MOD-sp2): 63.1 ml EDV(MOD-sp4): 45.1 ml
[2024-12-20 16:36] VITALS: BMI 30.9
[2024-12-20 17:16] VITALS: BP 220/70; PULSE 41; RESP 16; TEMP 36.7; O2SAT 99
--- NOTE | 2024-12-20 18:23 | PCM.CONS.C ---
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 My recommendation at this time is for her to be admitted to undergo a permanent pacemaker implantation. The risk benefits alternatives of an explained to her she understands and agrees to proceed. Thank you for allowing me to participate in the care of your patient. Please don't hesitate to call if any issues arise. HPI Consult Data Date of Consult: 12/20/24 HPI Narrative HPI Narrative: AURELIA ASHLEY, is a 79 F who presents to the echocardiographic lab for an echocardiogram to be done routinely. Her major problem is that she has had some dizziness over the last few months to years. She thinks that this has gotten a little worse and she went to see her primary physician who ordered an EKG and then an echocardiogram. She presented for the echocardiogram today and during when it was being done she was noted to be rather bradycardic I was called to see her an EKG was done which demonstrated sinus bradycardia with a 2-1 AV block with a heart rate of 37 bpm. She has had no bautista syncopal episodes she denies any chest pain or paroxysmal nocturnal dyspnea or pedal edema she has had no neck arm or jaw discomfort suggest angina. She has been on very little medication and she has been compliant with those. [ ] FOR[facility]LY [facility] Medical History Wears glasses Leg cramps Cardiology follow-up encounter History of Holter monitoring History of echocardiogram Skin cancer Osteopenia High cholesterol Hypertension Cataracts, bilateral RBBB (right bundle branch block) Essential hypertension Left atrial enlargement Sinus bradycardia Home Medications Medication Instructions Recorded Last Taken Type alendronate 70 mg tablet 70 mg PO HIDALGO 09/06/13 Unknown History aspirin 81 mg tablet,delayed 81 mg PO DAILY@0800 09/06/13 12/20/24 History release atorvastatin 20 mg tablet 20 mg PO QHS 09/06/13 12/19/24 History calcium 600 mg (as 2 ea PO DAILY 09/06/13 12/20/24 History carbonate)-vitamin D3 10 mcg (400 unit) tablet (Calcium 600 + D(3)) ergocalciferol (vitamin D2) 1,250 1,000 unit PO DAILY 09/06/13 12/20/24 History mcg (50,000 unit) capsule (Vitamin D2) multivitamin with iron 1 ea PO DAILY 09/06/13 12/20/24 History omega-3s 360 oa-nhs-tgn-fish oil 1 ea PO DAILY 09/06/13 12/20/24 History 1,200 mg-D3 1,000 unit capsule (Fish Oil-Vit D3) Allergy/AdvReac Type Severity Reaction Status Date / Time No Known Allergies Allergy Verified 07/08/24 10:04 Family History Mother Angina pectoris Anxiety Cancer lung cancer Thyroid disorder Father Hypertension Grandmother Diabetes Heart disease Grandfather Diabetes Heart disease Surgical History History of hysterectomy History of hernia repair History of bunionectomy Social History Smoking Status: Never smoker alcohol intake: never substance use type: does not use additional social history: pt denies vaping, denies edibles, denies marijuana denies family history of blood clots uses aspirin daily, uses ibuprofen as needed ROS Constitutional Constitutional: Denies fever(s) or weight loss Eyes Eyes: Reports systems reviewed and no addt'l complaints, except as documented ENT HEENT: Reports systems reviewed and no addt'l complaints, except as documented Cardiovascular Cardiovascular: Denies chest pain at rest, chest pain with activity, dyspnea at rest, dyspnea on exertion, edema, palpitations or paroxysmal nocturnal dyspnea Respiratory/Chest Respiratory/Chest: Denies dyspnea on exertion, productive cough, shortness of breath at rest or shortness of breath with exertion Gastrointestinal Gastrointestinal: Denies change in bowel habits, nausea, vomiting or weight changes Genitourinary Genitourinary: Denies difficulty urinating Musculoskeletal Musculoskeletal: Denies joint stiffness or muscle weakness Integumentary Integumentary: Denies lesions Neurologic Neurologic: Reports dizziness; Denies syncope Psychiatric Psychiatric: Denies anxiety Endocrine Endocrinology: Denies excessive sweating or fatigue Hematologic/Lymphatic Hematologic/Lymphatic: Denies anemia Allergic/Immunologic Allergic/Immunologic: Denies seasonal rhinorrhea Physical Exam Const alert, oriented x3 and no apparent distress General Appearance: cooperative HEENT hearing grossly normal bilaterally Head and Scalp: atraumatic Eyes EOMs intact bilaterally Neck General: normal visual inspection Chest inspection of chest normal and palpation of chest normal Resp normal respiratory effort Auscultation: clear to auscultation bilaterally Cardio regular rate, regular rhythm, S1 normal heart sound and S2 normal heart sound Jugular Venous Distention: JVD GI normal to inspection, nondistended, normoactive bowel sounds Extremity normal capillary refill and no pedal edema Peripheral Pulses: Yes pulses 2+ throughout and femoral pulses present Skin no rashes or lesions noted Neuro oriented x3 and CN's II-XII intact bilaterally Psych Appearance: grossly normal and appropriate Objective Data Vital Signs: Vital Signs Temp Pulse Resp BP Pulse Ox O2 Del Method 98.1 F 41 L 16 220/70 H 99 Room Air 12/20/24 17:16 12/20/24 17:16 12/20/24 17:16 12/20/24 17:16 12/20/24 17:16 12/20/24 17:16 Oxygen Delivery Method Room Air Weight: 158 lb 4.8 oz Body Mass Index (BMI) 30.9 Cardiology Labs/Tests Rhythm: EKG: ECHO: Stress Test: Cardiac Cath: PCI: CT Surgery: Holter monitor: EPS: PPM: CXR: Chest CT Scan: Radiography Diagnostic Testing: Radiology Impression Echocardiogram 12/20/24 14:38 Interpretation Summary Normal LV size. The left ventricular ejection fraction is 65 %. Mild (1+) eccentric mitral valve insufficiency. Pulmonary artery systolic pressure is 30 mmHg. Noted to be in 2-1 heart block. Ordering Physician: Marifer Ward Referring Physician: Marifer Ward Performed By: Charisma Shah RDCS A Risk Score for UA/STEMI Assesmment (YES = 1) Risk Stratification Applicable: No
[2024-12-20 19:45] VITALS: BP 207/56; PULSE 40; RESP 18; TEMP 36.6; O2SAT 99
[2024-12-20 20:15] LABS: Hematocrit 41.3 % (37-47); Hemoglobin 13.5 g/dL (12.0-15.0); Mean Corp Hgb Conc 32.7 g/dL (32-36); Mean Corpuscular Volume 88.8 fL (81-99); Mean Platelet Vol. 10.6 fl (6.2-12.0); Platelet Count 264 K/mm3 (150-450); RBC Distribution Width CV 14.8 % (11.6-14.6); RBC Distribution Width SD 48.5 fl (35.1-43.9); Red Blood Count 4.65 M/mm3 (4.2-5.4); White Blood Count 8.0 K/mm3 (4.4-11.0)
[2024-12-20 20:45] LABS: Anion Gap 13 (5-15); BUN 21 mg/dL (4-19); BUN/Creat Ratio 23.2 RATIO (10-20); Calcium,Total 9.4 mg/dL (7.6-11.0); Carbon Dioxide 22.5 mmol/L (21.0-32.0); Chloride 105 mmol/L (98-108); Estimated Creatinine Clearance 46.30 ml/min (50-250); Glucose 115 mg/dL (70-99); Potassium 3.8 mmol/L (3.3-5.1)
[2024-12-20] MEDS: 0.9% Saline Lock 10 ML Syringe IV (21:09)
[2024-12-20 21:35] LABS: Mucous, Urine 0 SEEN /hpf (<or=2+)
[2024-12-20 21:45] LABS: Color, Urine Straw (Yellow); Glucose, Dipstick Normal (Normal); Ketone-Dipstick Negative (Negative); Leukocyte Esterase-Dipstick 25 /ul (Negative); Nitrite-Dipstick Negative (Negative); Occult Blood-Urine Negative /ul (Negative); Protein-Dipstick Negative (Negative); Specific Gravity, Urine 1.010 (1.002-1.030); Urine Bilirubin Dipstick Negative (Negative)
[2024-12-20 22:16] LABS: Red Blood Cells-Urine 0-5 SEEN /hpf (0-5); Squamous Epithelial Cells - UA 0-5 SEEN /hpf (5-10)
[2024-12-20 22:30] VITALS: BP 190/51; PULSE 38; RESP 16; TEMP 36.4; O2SAT 97
[2024-12-21] VITALS (8 sets, daily range): BP systolic 159–186; BP diastolic 43–68; PULSE 34–69; RESP 16–18; TEMP 36.1–36.8; O2SAT 95–99
[2024-12-21] MEDS: 0.9% Saline Lock 10 ML Syringe IV ×3 (07:02→10:46)
[2024-12-21] MEDS: 0.9% Normal Saline (1000mL) 1,000 ML 60 ML IV (07:03)
--- NOTE | 2024-12-21 11:56 | NURSING ---
Report called to Seismograph Operator RNDi. Antibiotic being sent down with patient.
--- NOTE | 2024-12-21 13:43 | CL.IE_ITS ---
Patient: AURELIA ASHLEY Study Date: 12/21/2024 Performing: Omar Montgomery MD : 1945 Age: 79 Gender: female PROCEDURES PERFORMED LP04-(46213)INITIAL PACER INSERT+DUAL LEADS INDICATIONS Atrioventricular (AV) block PROCEDURE DETAILS The patient was brought to the Catheterization Lab in the postabsorptive nonsedated state. Informed consent was obtained prior to the procedure. Local anesthetic was given subcutaneously to the left upper chest area with Lidocaine 2%. Access was achieved and a guidewire was advanced into the left subclavian vein. Incision was made to the left subclavicular area. PPM ventricular lead was inserted / positioned to right ventricular apex. PPM ventricular lead testing performed. PPM ventricular lead testing performed. The sheath was then removed. PPM atrial lead was inserted / positioned to the right atrial appendage. PPM atrial lead testing performed. The Ventricular PM lead sutured in place with 2-0 Silk. The Atrial lead sutured in place with 2-0 Silk. PPM generator was attached to the lead(s) and inserted into the pocket. Device pocket was irrigated with antibiotic. PPM generator was then interrogated by the edi programmer analyst. Subcutaneous closure was completed with 3-0 Vicryl. Skin closure was completed with 4-0 Vicryl. The patient tolerated the procedure well. Estimated Blood Loss: 10 ml's IMPLANTED / EX-PLANTED DEVICES IMPLANTED DEVICE(S): PPM Generator - Ad Operations Coordinator: [employer], Model # ESSENTIO MRI L131 , Serial # [id number] Ventricular lead - Ad Operations Coordinator: [employer], Model # INGEVITY 7841 52cm , Serial # [id number] Atrial lead - Ad Operations Coordinator: [employer], Model # INGEVITY 7841 52cm , Serial # [id number] DEVICE PARAMETERS ATRIAL LEAD PARAMETERS: P wave- 5.8 (mV) Current- 0.9 (mA) threshold- 0.7 (V) impedence- 763 (OHMS) 10V test, no diaphragmatic capture VENTRICULAR LEAD PARAMETERS: R wave- 20.2 (mV) Current- 1.0 (mA) threshold- 0.9 (V) impedence- 880 (OHMS) 10V test, no diaphragmatic capture DEVICE PARAMETERS: Mode- DDD Lower rate- 60 Upper rate- 130 CONCLUSIONS / RECOMMENDATIONS Device Conclusions: Successful implantation of a dual chamber pacemaker Device Recommendations: Follow up with Primary Care Physician PROCEDURE MEDICATIONS Fentanyl 50 mcg IV Versed 1 mg IV Oxygen: 2 L/min via nasal cannula Antibiotic given in appropriate timeframe. Ancef 2 Gm IV @ 12/21/2024 12:23:50 Signed By Omar Montgomery MD On 12/21/2024 13:42:18 Omar Montgomery MD
--- NOTE | 2024-12-21 14:54 | PN.CARD_ITS ---
Subjective Subjective Patient seen and evaluated. Objective Data Vital Signs: Vital Signs Temp Pulse Resp BP Pulse Ox O2 Del Method 97.6 F L 69 16 164/63 H 98 Room Air 12/21/24 14:10 12/21/24 14:30 12/21/24 14:30 12/21/24 14:30 12/21/24 14:30 12/21/24 14:30 Oxygen Delivery Method Room Air Weight: 158 lb 4.8 oz Body Mass Index (BMI) 30.9 Lab / Micro Data 12/20/24 19:09 12/20/24 19:52 Labs: Laboratory Results - last 24 hr 12/20/24 19:09: WBC 8.0, RBC 4.65, Hgb 13.5, Hct 41.3, MCV 88.8, MCH 29.0, MCHC 32.7, RDW Std Deviation 48.5 H, RDW Coeff of Shannan 14.8 H, Plt Count 264, MPV 10.6 12/20/24 19:52: Sodium 140, Potassium 3.8, Chloride 105, Carbon Dioxide 22.5, Anion Gap 13, BUN 21 H, Creatinine 0.90, Estim Creat Clear Calc 46.30 L, Est GFR (MDRD) Non-Af 66, BUN/Creatinine Ratio 23.2 H, Glucose 115 H, Calcium 9.4 12/20/24 21:25: Urine Color Straw, Urine Clarity Clear, Urine pH 7.0, Ur Specific [place] 1.010, Urine Protein Negative, Urine Glucose (UA) Normal, Urine Ketones Negative, Urine Occult Blood Negative, Urine Nitrite Negative, Urine Bilirubin Negative, Urine Urobilinogen Normal, Ur Leukocyte Esterase 25 H, Urine RBC 0-5 SEEN, Urine WBC 0-5 SEEN, Ur Squamous Epith Cells 0-5 SEEN, Urine Bacteria 0 SEEN, Urine Mucus 0 SEEN Cardiology Labs/Tests 12/20/24 19:09: WBC 8.0, RBC 4.65, Hgb 13.5, Hct 41.3, MCV 88.8, MCH 29.0, MCHC 32.7, Plt Count 264, MPV 10.6 12/20/24 19:52: Sodium 140, Potassium 3.8, Chloride 105, Carbon Dioxide 22.5, Anion Gap 13, BUN 21 H, Creatinine 0.90, Est GFR (MDRD) Non-Af 66, B UN/Creatinine Ratio 23.2 H, Glucose 115 H, Calcium 9.4 12/20/24 21:25: Urine Color Straw, Urine Clarity Clear, Urine pH 7.0, Ur Specific [place] 1.010, Urine Protein Negative, Urine Glucose (UA) Normal, Urine Ketones Negative, Urine Occult Blood Negative, Urine Nitrite Negative, Urine Bilirubin Negative, Urine Urobilinogen Normal, Ur Leukocyte Esterase 25 H, Urine RBC 0-5 SEEN, Urine WBC 0-5 SEEN Rhythm: EKG: ECHO: Stress Test: Cardiac Cath: PCI: CT Surgery: Holter monitor: EPS: PPM: CXR: Chest CT Scan: Radiography Diagnostic Testing: Radiology Impression Echocardiogram 12/20/24 14:38 Interpretation Summary Normal LV size. The left ventricular ejection fraction is 65 %. Mild (1+) eccentric mitral valve insufficiency. Pulmonary artery systolic pressure is 30 mmHg. Noted to be in 2-1 heart block. Ordering Physician: Marifer Ward Referring Physician: Marifer Ward Performed By: Charisma Shah RDCS Physical Exam Const alert, oriented x3 and no apparent distress General Appearance: cooperative HEENT hearing grossly normal bilaterally Head and Scalp: atraumatic Eyes EOMs intact bilaterally Neck General: normal visual inspection Chest inspection of chest normal and palpation of chest normal Resp normal respiratory effort Auscultation: clear to auscultation bilaterally Cardio regular rate, regular rhythm, S1 normal heart sound and S2 normal heart sound Jugular Venous Distention: JVD GI normal to inspection, nondistended, normoactive bowel sounds Extremity normal capillary refill and no pedal edema Peripheral Pulses: Yes pulses 2+ throughout and femoral pulses present Skin no rashes or lesions noted Neuro oriented x3 and CN's II-XII intact bilaterally Psych Appearance: grossly normal and appropriate Assessment & Plan Assessment/Plan (1) 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 My recommendation at this time is for her to be admitted to undergo a permanent pacemaker implantation. She underwent the above this afternoon and appears to be doing quite well. Thank you for allowing me to participate in the care of your patient. Please don't hesitate to call if any issues arise.
--- NOTE | 2024-12-21 15:44 | CASEMGMT ---
Social Work SW assisted the patient with completing a LW and POA. A copy was put in the patients chart. GINGER Osborne
--- NOTE | 2024-12-21 15:57 | CASEMGMT ---
HEWITT Met with patient to complete HEWITT form. HEWITT form and its content were verbally explained and patient's questions were answered to the best of my ability. Patient voiced understanding and signed HEWITT form. Patient provided a copy of signed HEWITT form and original placed in patient's chart. Patient had no further questions. Justina Mccarty, Discharge Planning Asst
--- NOTE | 2024-12-22 05:00 | RAD_ITS ---
PROCEDURE: CHEST 3 VIEW 12/22/2024 REASON FOR EXAM: POST PERMANANT ICD/PACEMAKER TECHNIQUE: Procedure Code: RADCXRPALATOB Modality: DX Procedure: CHEST 3 VIEW COMPARISON: December 16, 2024 FINDINGS: There is a left-sided cardiac device with wires in position. Heart size is upper normal. Central vascularity appears normal. There is atelectasis or infiltrate in the retrocardiac region, left lung base. There is no pneumothorax or significant effusion. There is no acute bony abnormality. RAD/Chest 3 View IMPRESSION: There is atelectasis or infiltrate in the retrocardiac region, left lung base. Reading Location: [facility]
[2024-12-22 06:15] VITALS: BP 180/68; PULSE 63; RESP 18; TEMP 35.7; O2SAT 95
--- NOTE | 2024-12-22 09:21 | PN.CARD_ITS ---
Subjective Subjective Patient seen and evaluated. Appears to be doing well. Objective Data Vital Signs: Vital Signs Temp Pulse Resp BP Pulse Ox O2 Del Method 96.3 F L 63 18 180/68 H 95 Room Air 12/22/24 06:15 12/22/24 06:15 12/22/24 06:15 12/22/24 06:15 12/22/24 06:15 12/22/24 06:15 Oxygen Delivery Method Room Air Weight: 158 lb 4.8 oz Body Mass Index (BMI) 30.9 Intake & Output: Intake and Output for Last 24 Hours 12/20/24 12/21/24 12/22/24 23:59 23:59 23:59 Intake Total 654 / 1104 750 / 750 Output Total 800 / 800 Balance 654 / 704 -50 / -50 Lab / Micro Data 12/20/24 19:09 12/20/24 19:52 Cardiology Labs/Tests Rhythm: EKG: ECHO: Stress Test: Cardiac Cath: PCI: CT Surgery: Holter monitor: EPS: PPM: CXR: Chest CT Scan: Radiography Diagnostic Testing: Radiology Impression Chest X-Ray 12/22/24 05:00 IMPRESSION: There is atelectasis or infiltrate in the retrocardiac region, left lung base. Reading [facility] Physical Exam Const alert, oriented x3 and no apparent distress General Appearance: cooperative HEENT hearing grossly normal bilaterally Head and Scalp: atraumatic Eyes EOMs intact bilaterally Neck General: normal visual inspection Chest inspection of chest normal and palpation of chest normal Resp normal respiratory effort Auscultation: clear to auscultation bilaterally Cardio regular rate, regular rhythm, S1 normal heart sound and S2 normal heart sound Jugular Venous Distention: JVD GI normal to inspection, nondistended, normoactive bowel sounds Extremity normal capillary refill and no pedal edema Peripheral Pulses: Yes pulses 2+ throughout and femoral pulses present Skin no rashes or lesions noted Neuro oriented x3 and CN's II-XII intact bilaterally Psych Appearance: grossly normal and appropriate Assessment & Plan Assessment/Plan (1) 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 She underwent permanent pacemaker implantation. Pacemaker numbers appear to be stable this morning and chest x-ray is unremarkable. Will discharge for outpatient follow-up. Thank you for allowing me to participate in the care of your patient. Please don't hesitate to call if any issues arise.
--- NOTE | 2024-12-22 09:24 | DCINST_ITS ---
Discharge Instructions DC O2, CPAP, BIPAP needs Home O2 Discharge instructions: No Dressing / Incision Discharge Activity: May Not Drive May shower in (days): 2 Additional Activity Instructions:: May shower or bathe on [day 3]. Do not scrub the incision or soak in the tub. Just wash with soap and let the water run over the incision. Gently pat dry with towel. Medications: Take your pain medication as directed. Refer to your discharge instruction sheet for a list of medications you are to take. Dressing / Incision Call your doctor if your incision/area has: Continuous Slow Oozing, Sudden Increased Bleeding, Increased Pain/ Swelling, Increased Redness, Foul Smelling Discharge and Swelling at the incision site Call your doctor if you observe: Fever of 101 or Higher, Shortness of breath, Dizziness, Fainting spells, Swelling in the ankles, Chest pain, Prolonged hiccupping and Increased palpitations (irregular heartbeat) Suture Line Care: Avoid Pulling/Pushing and Avoid Pinching/Bending Cleanse incision/area with: Do not get Incision Wet and Keep Dressing Clean & Dry Additional Dressing/Incision Instructions:: When dressing is removed, wash and dry incision. Keep covered with a light bandage if it is rubbing against your clothing. Do not cover the incision with an airtight bandage. Change the bandage daily. Do not remove steri strips. The strips will fall off on their own. Follow Up Care Please Follow Up With: Omar Montgomery MD When: Pacer follow-up December 28 at 1:30 PM. Test Results: Test results from this visit will be discussed in further detail at your follow- up appointment, if applicable. Discharge Plan Admission Admit Date/Time: 12/20/24 18:27 Attending Provider: Omar Montgomery Primary Care Provider: Marifer Ward Discharge Orders/Prescriptions Prescriptions: No Action atorvastatin 20 MG tablet 20 mg PO QHS alendronate 70 MG tablet 70 mg PO HIDALGO aspirin 81 MG tablet 81 mg PO DAILY@0800 ergocalciferol (vitamin D2) [Vitamin D2] 50,000 UNIT capsule 1,000 unit PO DAILY multivitamin with iron 1 EACH tablet 1 ea PO DAILY calcium carbonate-vitamin D3 [Calcium 600 + D(3)] 1 EACH tablet 2 ea PO DAILY [id number] oil-D3 [Fish Oil-Vit D3] 1 EACH capsule 1 ea PO DAILY Referrals / Follow Up: Marifer Ward DO [Primary Care Provider, Internal Medicine] Disposition Disposition (needs filled in before D/C Order can be placed): Home, Self Care
[2024-12-22 10:26] VITALS: BP 170/59; PULSE 69; RESP 17; TEMP 36.6; O2SAT 96
[2024-12-22] MEDS: Calcium Carb/Vitamin D 1 TABLET Tablet 2 TABLET PO (10:28)
[2024-12-22 11:39] VITALS: BP 152/82
== END 2024-12-22 12:16 | disposition home or self-care (01) ==
LOC: PCU 18:34
PROVIDERS: Admitting Provider Internal Medicine Cardiovascular Disease; PCP Internal Medicine; Referring Provider Internal Medicine Cardiovascular Disease; Visit Provider Internal Medicine Cardiovascular Disease
DX: Z45.018 Encounter for adjustment and management of other part of cardiac pacemaker (principal); R00.1 Bradycardia, unspecified; E78.00 Pure hypercholesterolemia, unspecified; I10 Essential (primary) hypertension; I44.30 Unspecified atrioventricular block; Z79.899 Other long term (current) drug therapy; Z79.82 Long term (current) use of aspirin; I08.1 Rheumatic disorders of both mitral and tricuspid valves
CPT/HCPCS: 33208; 71047; 80048; 81001; 85027; 93005; 93306; 99152; 99153; 99221; A4216; C1894; C8929; G0378